=== PATIENT | male | born 1965 | race Caucasian/White ===

== ENCOUNTER 2025-08-03 16:44 | Emergency (ER) | payer OTHER, SELFPAY ==
[2025-08-03 17:07] VITALS: BP 191/102; PULSE 92; RESP 20; TEMP 37.5; O2SAT 95; BMI 38.7
--- NOTE | 2025-08-03 17:30 | ED_ITS ---
HPI - General Adult General Chief complaint: Laceration/Wound Stated complaint: L hand LAC Time Seen by Provider: 08/03/25 17:12 Source: patient Mode of arrival: ambulatory Limitations: no limitations History of Present Illness HPI narrative: 60-year-old male coming in today with a laceration to the left palm of his hand that he suffered while cutting a watermelon. Unsure of his last tetanus shot. Denies other injury. Patient has not been to a doctor in many years, does not have a primary care provider. Related Data Home Medications ?Medication ?Instructions ?Recorded ?Confirmed No Known Home Medications 08/03/2507/15 Allergies Allergy/AdvReac Type Severity Reaction Status Date / Time No Known Drug Allergies Allergy Verified 08/03/25 17:04 Review of Systems Status of ROS: Reports: 6 or more systems reviewed and unremarkable except as noted in History and below Exam Narrative: Exam Narrative: Overweight, well-developed patient in no acute distress. Alert and oriented. Answers questions appropriately. Mood and affect are appropriate. Thoughts are goal oriented and rational. No tangential or magical thinking noted. Patient speaks in full sentences without needing to catch his breath. HEENT: Normocephalic atraumatic. Pupils are equally round reactive to light. Extraocular muscles are intact. Conjunctivae are moist without any icterus noted. Moist mucous membranes. Extremities. Patient has a 1-1/2 inch laceration on the palm of the left hand that penetrates through the dermis into the subcutaneous tissue. There is no underlying structures visible. Full range of motion of all his fingers. Const: Vital Signs, click to edit/add: Vital Signs - 24 hr 08/03/25 17:07 Temperature 99.5 F Pulse Rate [Pulse Oximeter] 92 Respiratory Rate 20 Blood Pressure [Ri ght Upper Arm] 191/102 H Pulse Oximetry 95 Oxygen Delivery Me thod Room Air Course Course ED Course: Area was clean the usual sterile manner anesthetized with lidocaine. Wound was irrigated and cleaned once again. Six sutures with 4-0 Ethilon were placed. Tetanus shot was updated. Vital Signs Vital signs: Initial Vital Signs Temperature 99.5 F 08/03/25 17:07 Temperature Source Temporal Artery Scan 08/03/25 17:07 Pulse Rate 92 08/03/25 17:07 Respiratory Rate 20 08/03/25 17:07 Blood Pressure 191/102 H 08/03/25 17:07 Blood Pressure Mean 131 H 08/03/25 17:07 Pulse Oximetry 95 08/03/25 17:07 Oxygen Delivery Method Room Air 08/03/25 17:07 Vital Signs Temperature 99.5 F 08/03/25 17:07 Pulse Rate 92 08/03/25 17:07 Respiratory Rate 20 08/03/25 17:07 Blood Pressure 191/102 H 08/03/25 17:07 Pulse Oximetry 95 08/03/25 17:07 Oxygen Delivery Method Room Air 08/03/25 17:07 Temperature 99.5 F 08/03/25 17:07 Pulse Rate 92 08/03/25 17:07 Respiratory Rate 20 08/03/25 17:07 Blood Pressure 191/102 H 08/03/25 17:07 Pulse Oximetry 95 08/03/25 17:07 Oxygen Delivery Method Room Air 08/03/25 17:07 Medical Decision Making MDM Narrative Medical decision making narrative: 60-year-old male laceration of the palm of the hand sutured per above. Discharge Plan Discharge Clinical Impression: Laceration, Elevated blood pressure reading Patient Disposition: Home, Self-Care Condition: Stable Additional Instructions: Keep wound clean and dry. Do not soak such as taking baths, swimming or doing dishes. Follow-up in approximately 1 week for suture removal with your primary care provider. Watch for signs and symptoms of infection including increasing redness of the area, purulent drainage, or fever. If this occurs follow-up right away with your doctor or return to the ER. Change dressing once daily. Also coming blood pressure was very elevated while you were in the ER today. I do recommend you establish care with a primary care provider to have your blood pressure recheck. Uncontrolled blood pressure can lead to heart attacks and strokes. Prescriptions: No Action No Known Home Medications Stand Alone Forms: [employer] Info Instructions
[2025-08-03] MEDS: TETANUS/DIPHTH/PERTUSSIS 0.5 ML SYRINGE IM (17:49)
== END 2025-08-03 17:59 | disposition home or self-care (01) ==
LOC: ED 17:47
PROVIDERS: Emergency Provider Family Medicine
DX: S61.412A Laceration without foreign body of left hand, initial encounter (principal); W26.0XXA Contact with knife, initial encounter; Z23 Encounter for immunization
CPT/HCPCS: 12001; 90471; 90715; 99283; 99284